=== PATIENT | male | born 1950 | race Caucasian/White ===

== ENCOUNTER 2024-06-28 11:20 | Emergency (ER) | payer OTHER ==
[~2024-06-28] VITALS: Ht 172.7 cm; Wt 77.3 kg
[2024-06-28 11:24] VITALS: TEMP 97.8
[2024-06-28 11:49] LABS: BASO # 0.1 K/mm3 (0.0-0.2); BASO % 0.7 % (0.0-2.0); EOS # 0.2 K/mm3 (0.0-0.7); EOS % 2.2 % (0.0-4.0); GRAN % 67.2 % (42.2-75.2); HEMATOCRIT 45.3 % (42.0-52.0); HEMOGLOBIN 15.2 g/dl (13.5-18.0); LYMPH # 1.9 K/mm3 (1.2-3.4); LYMPH % 20.8 % (20.0-51.0); MEAN CELL VOLUME 91 fl (80.0-100.0); MEAN CORPUSCULAR HEMOGLOBIN 31 pg (27-31); MEAN CORPUSCULAR HGB CONC 34 g/dl (33.0-37.0); MEAN PLATELET VOLUME 10.4 fl (7.4-10.4); MONO # 0.8 K/mm3 (0.1-0.6); MONO % 8.7 % (1.7-9.3); PLATELET COUNT 234 K/mm3 (130-400); RED BLOOD COUNT 4.97 M/mm3 (4.20-5.60); REDCELL DISTRIBUTION WIDTH-CV 13.9 % (11.5-14.5)
[2024-06-28] MEDS ORDERED: Meclizine 25 MG TAB PO ONE ×2 (12:00→15:15)
[2024-06-28 12:03] LABS: ALBUMIN 3.8 g/dL (3.4-4.8); BILIRUBIN,TOTAL 0.4 mg/dL (0.2-1.2); CALCIUM 8.9 mg/dL (8.4-10.2); CREATININE, serum 1.11 mg/dL (0.72-1.25); POTASSIUM 4.4 mEq/L (3.5-4.5)
[2024-06-28 12:09] LABS: TROPONIN-I 0.019 ng/mL (0.00-0.033)
[2024-06-28] MEDS ORDERED: hydrALAZINE 20 MG/ML 1 ML VIAL IV ONE (13:30)
[2024-06-28] MEDS ORDERED: Ketorolac 15 MG/ML VIAL IV ONE (15:15)
[2024-06-28] MEDS ORDERED: DRAMAMINE LESS25 MG PO (15:32)
[2024-06-28 15:51] VITALS: BP 140/78; PULSE 66
== END 2024-06-28 15:51 | disposition home or self-care (01) ==
LOC: COL.ER 11:20
PROVIDERS: Physician Assistant
DX: R07.89 Other chest pain (principal); R42 Dizziness and giddiness; I10 Essential (primary) hypertension
CPT/HCPCS: J0360; J1885